=== PATIENT | female | born 1955 | race Caucasian/White ===

== ENCOUNTER 2018-10-28 13:00 | Day surgery (SDC) | payer BC ==
[2018-10-28] MEDS ORDERED: PROPOFOL 40 ML (14:52)
[2018-10-28] MEDS ORDERED: LIDOCAINE 2% (SDV) 5 ML INJ (14:52)
== END 2018-10-28 16:48 | disposition home or self-care (01) ==
LOC: GIL 13:00
DX: K92.1 Melena (principal); K64.8 Other hemorrhoids; I10 Essential (primary) hypertension
CPT/HCPCS: 45378